=== PATIENT | male | born 2000 | race Caucasian/White ===

== ENCOUNTER 2022-10-27 15:40 | Emergency (ER) | payer OTHER, SELFPAY ==
--- NOTE | ~2022-10-27 | XR_ITS ---
EXAMINATION: XR ribs RT 2V w CXR 2V Exam Date/Time: 10/27/2022 17:40 CDT HISTORY: rib pain Comparison: 12/04/2016. RESULT: Lines, tubes, and devices: None. Lungs and pleura: Clear. Cardiothymic silhouette: Stable. Other: No acute osseous or upper abdominal finding. IMPRESSION: No acute cardiopulmonary process. No acute osseous finding in the right ribs Reviewed, dictated and finalized at location K.
[2022-10-27 17:57] VITALS: BP 141/76; PULSE 80; RESP 19; TEMP 37.1; O2SAT 97
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
== END 2022-10-27 19:19 | disposition home or self-care (01) ==
LOC: ANHED 19:16
PROVIDERS: Emergency Provider Physician Assistant
DX: S20.211A Contusion of right front wall of thorax, initial encounter (principal); S50.311A Abrasion of right elbow, initial encounter; S20.311A Abrasion of right front wall of thorax, initial encounter; W19.XXXA Unspecified fall, initial encounter
CPT/HCPCS: 71046; 71100; 99283